=== PATIENT | female | born 1970 | race Caucasian/White ===

== ENCOUNTER 2017-08-26 23:21 | Observation (INO) | payer BC ==
[2017-08-26] MEDS ORDERED: DiphenhydrAMINE 50 mg/ml Inj IVP STA (23:33)
[2017-08-26] MEDS ORDERED: Albuterol-Ipratrop 3 mg / 0.5 (3 ml) UD INH STA (23:33)
[2017-08-26] MEDS ORDERED: Albuterol-Ipratrop 3 mg / 0.5 (3 ml) UD ONE (23:39)
[2017-08-26] MEDS ORDERED: DiphenhydrAMINE 50 mg/ml Inj ONE (23:39)
[2017-08-26 23:58] LABS: BASO # 0.1 K/uL (0.0-0.2); BASO % 0.6 % (0.0-2.0); EOS # 0.8 K/uL (0.0-0.7); EOS % 5.9 % (0.0-4.0); HEMOGLOBIN 10.7 g/dL (12.0-16.0); LYMPH # 3.6 K/uL (1.0-4.3); LYMPH % 25.5 % (20.0-40.0); MEAN CELL VOLUME 69.1 fl (81.0-99.0); MEAN CORPUSCULAR HEMOGLOBIN 21.3 pg (27.0-31.0); MEAN CORPUSCULAR HGB CONC 30.8 g/dL (33.0-37.0); MONO % 7.3 % (0.0-10.0); NEUT # 8.5 K/uL (1.8-7.0); NEUT % 60.7 % (50.0-75.0); RBC 5.01 Mil/uL (3.80-5.20); RED CELL DISTRIBUTION WIDTH 17.3 % (11.5-14.5)
[2017-08-27 00:08] LABS: ALB/GLOB RATIO 1.2 (1.0-2.1); ALT/SGPT 30 U/L (9-52); AST/SGOT 20 U/L (14-36); BLOOD UREA NITROGEN 18 mg/dl (7-17); CALCIUM 8.4 mg/dL (8.4-10.2); GFR AFRICAN-AMERICAN > 60; GFR NON-AFRICAN AMERICAN > 60
--- NOTE | 2017-08-27 00:23 | ED PDOC ---
HPI: SOB/CHF/COPD Time Seen by Provider: 08/26/17 23:32 Chief Complaint (Nursing): Respiratory Distress Chief Complaint (Provider): Respiratory Distress History Per: Patient History/Exam Limitations: no limitations Onset/Duration Of Symptoms: Hrs Current Symptoms Are (Timing): Still Present Additional Complaint(s): Elisa Mc is a 47 year old female with a history of asthma that presents to the ED with a chief complaint of asthma exacerbation that began at 8 PM today , upon patient's arrival to work. Patient reports that this was approximately 30 minutes after she had eaten [place] food, which she believes may have exacerbated her asthma. She reports chest tightness, and that feeling that her "throat is closing." Patient additionally reports no relief with Albuterol, and denies any fever, rhinorrhea, sore throat, cough, or rash. Past Medical History Reviewed: Historical Data, Nursing Documentation, Vital Signs Vital Signs: Last Vital Signs Temp 99.5 F 08/26/17 23:28 Pulse 107 H 08/26/17 23:28 Resp 24 08/26/17 23:28 BP 157/113 H 08/26/17 23:28 Pulse Ox 98 08/26/17 23:28 - Medical History PMH: Asthma - Surgical History Surgical History: - Family History Family History: States: Unknown Family Hx Other Family History: daughter also has asthma - Social History Current smoker - smoking cessation education provided: No - Allergies Allergies/Adverse Reactions: Allergies Allergy/AdvReac Type Severity Reaction Status Date / Time sesame seed Allergy Intermediate SWELLING Verified 08/26/17 23:30 shrimp Allergy Intermediate SWELLING Verified 08/26/17 23:30 Review of Systems ROS Statement: Except As Marked, All Systems Reviewed And Found Negative Constitutional: Negative for: Fever ENT: Positive for: Throat Swelling. Negative for: Nose Discharge, Nose Congestion, Throat Pain Cardiovascular: Positive for: Other (chest tightness) Respiratory: Negative for: Cough Skin: Negative for: Rash - Laboratory Results Result Diagrams: 08/26/17 23:50 08/26/17 23:50 - ECG O2 Sat by Pulse Oximetry: 98 (RA) Pulse Ox Interpretation: Normal Medical Decision Making Medical Decision Making: Impression: Asthma Exacerbation vs. Allergic reaction Plan: * Duoneb 9 mL INH * Peak Flow Pre/Post Tx * Benadryl 50 mg IV * Pepcid 40 mg IV * Urine Dip * Urine Preg * Reevaluation 00:00 Patient signed out to Dr. Patel pending ER workup, reassessment, and final ER disposition. Scribe Attestation: Documented by Clau Shah, acting as a scribe for Gemma Contreras MD. Provider Scribe Attestation: All medical record entries made by the Scribe were at my direction and personally dictated by me. I have reviewed the chart and agree that the record accurately reflects my personal performance of the history, physical exam, medical decision making, and the department course for this patient. I have also personally directed, reviewed, and agree with the discharge instructions and disposition. Disposition - Clinical Impression Clinical Impression: Asthma exacerbation - Patient ED Disposition Is Patient to be Admitted: Transfer of Care - Disposition Disposition: Transfer of Care Disposition Time: 00:00 Condition: FAIR Patient Signed Over To: Ankita Patel
--- NOTE | 2017-08-27 00:29 | ED PDOC ---
- Laboratory Results Result Diagrams: 08/26/17 23:50 08/26/17 23:50 - ECG O2 Sat by Pulse Oximetry: 98 (RA) Medical Decision Making Medical Decision Makin:00 Patient signed out to me by Dr. Contreras pending ER workup, reassessment, and final ER disposition. Scribe Attestation: Documented by Clau Shah, acting as a scribe for Ankita Patel MD. Provider Scribe Attestation: All medical record entries made by the Scribe were at my direction and personally dictated by me. I have reviewed the chart and agree that the record accurately reflects my personal performance of the history, physical exam, medical decision making, and the department course for this patient. I have also personally directed, reviewed, and agree with the discharge instructions and disposition. 2:13AM Patient has had persistent wheezing after duonebs x 3, solumedrol, and Mag. Peak flow:150. MD Dr. Jung. Will place in observation under Dr. Grewal for asthma. No indication for cxray as symptoms consistent with asthma and no complaint of productive cough or fever Disposition - Clinical Impression Clinical Impression: Asthma exacerbation - POA Present On Arrival: None - Disposition Disposition: Hospitalized as Observation Patient Disposition Time: 02:19 Condition: FAIR Forms: [email or web address] ([place])
[2017-08-27] MEDS ORDERED: Albuterol-Ipratrop 3 mg / 0.5 (3 ml) UD INH STA ×2 (00:40→01:16)
[2017-08-27] MEDS ORDERED: Albuterol-Ipratrop 3 mg / 0.5 (3 ml) UD ONE ×2 (00:42→01:24)
[2017-08-27] MEDS ORDERED: Magnesium Sulfate 2 gm/50 ml 2 GM/50 ML BAG IVPB ONE (00:48)
[2017-08-27] MEDS ORDERED: Albuterol 0.083% Inhal Sol (2.5 mg/3 mL) UD INH PRN (03:09)
[2017-08-27 06:22] LABS: HEMOGLOBIN 10.7 g/dL (12.0-16.0); MEAN CELL VOLUME 68.5 fl (81.0-99.0); MEAN CORPUSCULAR HEMOGLOBIN 21.6 pg (27.0-31.0); MEAN CORPUSCULAR HGB CONC 31.5 g/dL (33.0-37.0); RBC 4.95 Mil/uL (3.80-5.20); RED CELL DISTRIBUTION WIDTH 17.3 % (11.5-14.5); WHITE BLOOD COUNT 15.8 K/uL (4.8-10.8)
[2017-08-27 06:37] LABS: ALB/GLOB RATIO 1.1 (1.0-2.1); ALBUMIN 4.1 g/dL (3.5-5.0); ALT/SGPT 23 U/L (9-52); AST/SGOT 20 U/L (14-36); BLOOD UREA NITROGEN 16 mg/dl (7-17); CALCIUM 8.6 mg/dL (8.4-10.2); GFR AFRICAN-AMERICAN > 60; GFR NON-AFRICAN AMERICAN > 60
--- NOTE | 2017-08-27 07:05 | CP.PCM.HP ---
History of Present Illness - History of Present Illness History of Present Illness: A 47 year old female with history of asthma came to ER on 08/26/17 in the evening for wheezing. She ate [place] food at 8 PM and thirty minutes later she developed wheezing and felt chest tightness with choking sensation. She thought that it is "full blown asthma attak" and came to ER. She has a history of asthma since teenager and has had an intubation at [facility] in 1999. She has been taking albuterol inhaler as needed, Breo inhaler once a day and singulair. She does not smoke cigarettes and there is no family history of asthma. She denies cough, sputum, fever, chills, nausea, vomiting or diarrhea. At the ER, 120 mg of iv solumedrol was given. Present on Admission - Present on Admission Any Indicators Present on Admission: No History of DVT/PE: No History of Uncontrolled Diabetes: No Urinary Catheter: No Decubitus Ulcer Present: No Review of Systems - Constitutional Constitutional: absent: Anorexia, Chills, Daytime Sleepiness, Sleep Apnea - EENT Eyes: absent: Change in Vision Nose/Mouth/Throat: Tongue Swelling - Cardiovascular Cardiovascular: Chest Pain - Respiratory Respiratory: absent: Cough, Stridor - Gastrointestinal Gastrointestinal: absent: Bloating, Diarrhea, Nausea, Vomiting - Genitourinary Genitourinary: absent: Difficulty Urinating Past Patient History - Past Medical History & Family History Past Medical History?: Yes - Past Social History Smoking Status: Never Smoked - CARDIAC Hx Cardiac Disorders: No - PULMONARY Hx Respiratory Disorders: Yes Hx Asthma: Yes - NEUROLOGICAL Hx Neurological Disorder: No - HEENT Hx HEENT Problems: No - RENAL Hx Chronic Kidney Disease: No - ENDOCRINE/METABOLIC Hx Endocrine Disorders: No - HEMATOLOGICAL/ONCOLOGICAL Hx Blood Disorders: No - INTEGUMENTARY Hx Dermatological Problems: No - MUSCULOSKELETAL/RHEUMATOLOGICAL Hx Musculoskeletal Disorders: No Hx Falls: No - GASTROINTESTINAL Hx Gastrointestinal Disorders: No - GENITOURINARY/GYNECOLOGICAL Hx Genitourinary Disorders: No - PSYCHIATRIC Hx Psychophysiologic Disorder: No Hx Substance Use: No - SURGICAL HISTORY Hx Surgeries: No Hx Section: Yes - ANESTHESIA Hx Anesthesia: Yes Hx Anesthesia Reactions: No Meds Allergies/Adverse Reactions: Allergies Allergy/AdvReac Type Severity Reaction Status Date / Time sesame seed Allergy Intermediate SWELLING Verified 08/26/17 23:30 shrimp Allergy Intermediate SWELLING Verified 08/26/17 23:30 Physical Exam - Constitutional Appears: No Acute Distress - Head Exam Head Exam: ATRAUMATIC, NORMAL INSPECTION - Respiratory Exam Respiratory Exam: Wheezes (bilateral diffuse) - Cardiovascular Exam Cardiovascular Exam: REGULAR RHYTHM. absent: Systolic Murmur - GI/Abdominal Exam GI & Abdominal Exam: Normal Bowel Sounds, Soft. absent: Tenderness - Extremities Exam Extremities exam: Positive for: normal inspection. Negative for: pedal edema Results - Vital Signs Recent Vital Signs: Last Vital Signs Temp 97.6 F 08/27/17 05:00 Pulse 92 H 08/27/17 05:04 Resp 20 08/27/17 05:04 BP 158/85 H 08/27/17 05:00 Pulse Ox 95 08/27/17 05:04 - Labs Result Diagrams: 08/27/17 05:30 08/27/17 05:30 Labs: Laboratory Results - last 24 hr 08/26/17 08/26/17 08/27/17 23:50 23:50 05:30 WBC 14.0 H 15.8 H RBC 5.01 4.95 Hgb 10.7 L 10.7 L Hct 34.6 33.9 L MCV 69.1 L 68.5 L MCH 21.3 L 21.6 L MCHC 30.8 L 31.5 L RDW 17.3 H 17.3 H Plt Count 329 320 MPV 8.0 Neut % (Auto) 60.7 Lymph % (Auto) 25.5 [place] % (Auto) 7.3 Eos % (Auto) 5.9 H Baso % (Auto) 0.6 Neut # (Auto) 8.5 H Lymph # (Auto) 3.6 [place] # (Auto) 1.0 H Eos # (Auto) 0.8 H Baso # (Auto) 0.1 Sodium 139 Potassium 3.4 L Chloride 104 Carbon Dioxide 24 Anion Gap 14 BUN 18 H Creatinine 0.9 Est GFR ( Amer) > 60 Est GFR (Non-Af Amer) > 60 Random Glucose 134 H Calcium 8.4 Total Bilirubin 0.4 AST 20 ALT 30 Alkaline Phosphatase 58 Total Protein 7.2 Albumin 4.0 Globulin 3.3 Albumin/Globulin Ratio 1.2 08/27/17 05:30 WBC RBC Hgb Hct MCV MCH MCHC RDW Plt Count MPV Neut % (Auto) Lymph % (Auto) [place] % (Auto) Eos % (Auto) Baso % (Auto) Neut # (Auto) Lymph # (Auto) [place] # (Auto) Eos # (Auto) Baso # (Auto) Sodium 141 Potassium 3.7 Chloride 107 Carbon Dioxide 20 L Anion Gap 18 BUN 16 Creatinine 0.7 Est GFR ( Amer) > 60 Est GFR (Non-Af Amer) > 60 Random Glucose 189 H Calcium 8.6 Total Bilirubin 0.3 AST 20 ALT 23 Alkaline Phosphatase 61 Total Protein 7.9 Albumin 4.1 Globulin 3.8 Albumin/Globulin Ratio 1.1 Assessment & Plan - Assessment and Plan (Free Text) Assessment: Asthma exacerbation R/O food allergy leukocytosis, probably related to the use of steroids Plan: iv solumedrol 40 mg every eight hours respiratory treatment continue singulair - Date & Time Date: 08/27/17 Time: 07:09 Decision To Admit - Pt Status Changed To: Hospital Disposition Of: Inpatient - Admit Certification Admit to Inpatient:: After my assessment, the patient will require hospitalization for at least two midnights. This is because of the severity of symptoms shown, intensity of services needed, and/or the medical risk in this patient being treated as an outpatient. - . Bed Request Type: Med/Surg Admitting Physician: Abrahan Grewal
[2017-08-27 08:26] LABS: IRON 17 ug/dL (37-170)
[2017-08-27] MEDS: MethylPREDNISolone 40 mg Vial IVP SCH ×2 (08:28→16:34)
[2017-08-27 08:35] LABS: % IRON SATURATION 4 % (20-55); TOTAL IRON BINDING CAPACITY 476 ug/dL (250-450)
[2017-08-27] MEDS ORDERED: methylPREDNISolone 40 MG in Sodium Chloride 0.9% 50 ML IV SCH (09:00)
[2017-08-27] MEDS: Fluticasone-Salmeterol 250-50mcg Diskus IH SCH ×2 (10:34→21:38)
[2017-08-27] MEDS: Albuterol-Ipratrop 3 mg / 0.5 (3 ml) UD INH SCH ×4 (11:54→19:32)
[2017-08-27 16:35] VITALS: RESP 18
[2017-08-28 00:02] VITALS: O2SAT 96
[2017-08-28] MEDS: MethylPREDNISolone 40 mg Vial IVP SCH ×2 (00:24→08:56)
[2017-08-28 06:40] LABS: HEMOGLOBIN 10.3 g/dL (12.0-16.0); MEAN CELL VOLUME 68.7 fl (81.0-99.0); MEAN CORPUSCULAR HEMOGLOBIN 21.2 pg (27.0-31.0); MEAN CORPUSCULAR HGB CONC 30.9 g/dL (33.0-37.0); RBC 4.85 Mil/uL (3.80-5.20); RED CELL DISTRIBUTION WIDTH 17.4 % (11.5-14.5)
[2017-08-28 07:58] VITALS: BP 157/72; PULSE 76; TEMP 97.9
[2017-08-28] MEDS: Albuterol-Ipratrop 3 mg / 0.5 (3 ml) UD INH SCH (08:15)
--- NOTE | 2017-08-28 08:16 | CP.PCM.PN ---
Subjective - Date & Time of Evaluation Date of Evaluation: 08/28/17 Time of Evaluation: 08:15 - Subjective Subjective: improved symptoms no more chest tightness no wheezing Objective - Vital Signs/Intake and Output Vital Signs (last 24 hours): Temp Pulse Resp BP Pulse Ox 97.9 F 76 18 157/72 H 96 08/28/17 07:58 08/28/17 07:58 08/28/17 07:58 08/28/17 07:58 08/28/17 07:58 - Medications Medications: Current Medications Acetaminophen (Tylenol 325mg Tab) 650 mg PO Q6 PRN PRN Reason: Pain, Mild (1-3) Albuterol Sulfate (Albuterol 0.083% Inhal Debby (2.5 Mg/3 Ml) Ud) 2.5 mg INH RQ6 PRN PRN Reason: Shortness of Breath Last Admin: 08/27/17 08:59 Dose: 2.5 mg Albuterol/Ipratropium (Duoneb 3 Mg/0.5 Mg (3 Ml) Ud) 3 ml INH RQID [facility] Last Admin: 08/27/17 19:32 Dose: 3 ml Methylprednisolone (Solu-Medrol) 40 mg IVP Q8 [facility] Last Admin: 08/28/17 00:24 Dose: 40 mg Montelukast Sodium (Singulair) 10 mg PO DAILY [facility] Last Admin: 08/27/17 08:28 Dose: 10 mg Fluticasone/Salmeterol (Advair Diskus 250/50) 1 puff IH Q12 [facility] Last Admin: 08/27/17 21:38 Dose: 1 puff - Labs Labs: 08/28/17 05:40 08/27/17 05:30 - Constitutional Appears: Non-toxic - Respiratory Exam Respiratory Exam: Clear to Ausculation Bilateral, NORMAL BREATHING PATTERN - Cardiovascular Exam Cardiovascular Exam: REGULAR RHYTHM. absent: Murmur Assessment and Plan - Assessment and Plan (Free Text) Assessment: asthma exacerbation leukocytosis secondary to steroids ? iron deficiency anemia Plan: discussed with the patient she might be discharged home with tapering dose of steroid and an albuterol inhaler. follow up regarding leukocytosis and GARETH as an out patient.
[2017-08-28 08:19] LABS: BLOOD UREA NITROGEN 21 mg/dl (7-17); CALCIUM 9.5 mg/dL (8.4-10.2); GFR AFRICAN-AMERICAN > 60; GFR NON-AFRICAN AMERICAN > 60
[2017-08-28] MEDS: Fluticasone-Salmeterol 250-50mcg Diskus IH SCH (08:55)
== END 2017-08-28 11:22 | disposition home or self-care (01) ==
LOC: H.ER 23:21 → H.ERHOLD 08-27 02:19 → H.MEDSURG1 08-27 04:30
PROVIDERS: ADMIT Internal Medicine; ATTEND Internal Medicine
DX: J45.901 Unspecified asthma with (acute) exacerbation (principal); D50.9 Iron deficiency anemia, unspecified; D72.829 Elevated white blood cell count, unspecified; Z91.013 Allergy to seafood
CPT/HCPCS: 36415; 80048; 80053; 81025; 83540; 83550; 85025; 85027; 94150; 94640; 96374; 99283; G0378; J1200; J2920; J2930